=== PATIENT | male | born 1990 | race African-American/Black ===

== ENCOUNTER 2021-03-05 15:24 | Emergency (ER) | payer SELFPAY ==
[~2021-03-05] VITALS: Ht 185.4 cm; Wt 117.9 kg
--- NOTE | 2021-03-05 16:09 | NUR ---
TO ER BED 10, BIBSELF C/O HIGH BP 176/125, STARTED ON BP MEDS 2WEEKS AGO, AAOX3, BREATHING EVEN AND NON LABORED, CONNECTED TO MONITOR, AWAITING MD CLEMENTS
--- NOTE | 2021-03-05 16:13 | NUR ---
DR FU AT BEDSIDE
[2021-03-05 16:52] LABS: BASOPHILS % (AUTO) 0.9 % (0.0-2.0); EOSINOPHILS % (AUTO) 0.6 % (0.0-6.0); HEMATOCRIT 49 % (39-51); HEMOGLOBIN 16.9 g/dL (13.5-17.5); LYMPHOCYTES # (AUTO) 1.4 K/uL (0.8-4.8); MEAN CORPUSCULAR HGB CONC 35 g/dl (31.0-36.0); MEAN CORPUSCULAR VOLUME 87 fL (80-96); MONOCYTES # (AUTO) 0.7 K/uL (0.1-1.30); MONOCYTES % (AUTO) 19.1 % (2.0-12.0); NEUTROPHILS # (AUTO) 1.7 K/uL (1.8-8.9); NEUTROPHILS % (AUTO) 43.4 % (43.0-81.0); PLATELET COUNT (AUTO) 216 K/uL (150-450); RED BLOOD CELL COUNT(AUTO) 5.63 MIL/uL (4.5-6.0); WHITE BLOOD COUNT (AUTO) 3.9 K/uL (4.3-11.0)
--- NOTE | 2021-03-05 16:55 | NUR ---
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
[2021-03-05] MEDS ORDERED: hydrALAZINE HCL 25 MG TABLET PO ONE (17:00)
[2021-03-05 17:07] LABS: CALCIUM, SERUM 8.4 mg/dL (8.5-10.1); CARBON DIOXIDE 30 mmol/L (21-32); CHLORIDE 103 mmol/L (98-107); CREATININE 1.6 mg/dL (0.6-1.3); GLUCOSE 88 mg/dL (74-106); POTASSIUM 3.5 mmol/L (3.5-5.1); SODIUM SERUM 140 mmol/L (136-145); UREA NITROGEN, BLOOD 16 mg/dL (7-18)
--- NOTE | 2021-03-05 17:39 | NUR ---
BLOOD PRESSURE 206/122, MD AWARE
--- NOTE | 2021-03-05 17:49 | NUR ---
BLOOD PRESSURE 198/[address] FU MADE AWARE.
[2021-03-05] MEDS ORDERED: ACETAMINOPHEN 325 MG TABLET ONE (17:51)
[2021-03-05] MEDS ORDERED: hydrALAZINE HCL IV 20 MG VIAL ONE (17:51)
[2021-03-05] MEDS ORDERED: ACETAMINOPHEN 325 MG TABLET PO ONE (18:00)
[2021-03-05] MEDS ORDERED: hydrALAZINE HCL IV 20 MG VIAL IV ONE (18:00)
--- NOTE | 2021-03-05 19:09 | NUR ---
Patient does not wish to proceed with medical care recommended by Dr. Lawrence. Patient given information related to possible complications, up to and including , which could occur as a result of leaving the hospital at this time. Patient verbalizes understanding of risks involved due to leaving against medical advice. Patient has signed AMA form.
[2021-03-05 19:10] VITALS: BP 196/103
== END 2021-03-05 19:10 | disposition left against medical advice (07) ==
LOC: ER 16:10
DX: I16.0 Hypertensive urgency (principal); R51.9 Headache, unspecified; R94.31 Abnormal electrocardiogram [ECG] [EKG]
CPT/HCPCS: 36415; 71045; 80048; 84484; 85025; 93005; 96374; 99291; J0360